=== PATIENT | female | born 1990 | race American Indian/Alaskan Native ===

== ENCOUNTER 2018-09-07 12:31 | Emergency (ER) | payer MEDICAID ==
[2018-09-07 12:38] VITALS: BP 118/78
--- NOTE | 2018-09-07 12:46 | Emergency Department Report ---
Blank Doc - Documentation Documentation: This is a 28-year-old female that presents with vaginal bleeding. Stated had an 5 weeks ago. Stated has clots now. This initial assessment diagnostic orders/clinical plan/treatment(s) is/are subject to change based on patient's health status, clinical progression and re- assessment by fellow clinical providers in the ED. Further treatment and workup at subsequent clinical providers discretion. Patient/guardians urged not to elope from ED s their condition may be serious if not clinically assessed and managed. Initial orders include: 1-Patient sent to [facility] for further evaluation and treatment 2- Labs 3- Ultrasound
[2018-09-07 14:00] LABS: Bilirubin,Urine NEG (Negative); Blood,Urine LG (Negative); Color,Urine Yellow (Yellow); Mucus,Urine 3+ /HPF; RBC,Urine > 182.0 /HPF (0.0-6.0)
[2018-09-07 14:18] LABS: Basophils % (Auto) 0.4 % (0.0-1.8); Eosinophils # (Auto) 0.1 K/mm3 (0.0-0.4); Eosinophils % (Auto) 3.2 % (0.0-4.3); Hematocrit 34.1 % (30.3-42.9); Hemoglobin 11.1 gm/dl (10.1-14.3); Lymphocytes # (Auto) 1.6 K/mm3 (1.2-5.4); Mean Corpuscular HGB Conc 32 % (30-34); Mean Corpuscular Volume 82 fl (79-97); Monocytes # (Auto) 0.3 K/mm3 (0.0-0.8); Monocytes % (Auto) 9.5 % (0.0-7.3); Platelet Count 283 K/mm3 (140-440); Red Blood Count 4.14 M/mm3 (3.65-5.03); Red Cell Distribution Width 17.3 % (13.2-15.2)
--- NOTE | 2018-09-07 14:39 | Emergency Department Report ---
HPI <GREG NOVA - Last Filed: 09/07/18 19:13> - HPI HPI: 28-year-old female presents to the emergency department with complaint of some heavy vaginal bleeding that has occurred on 3 different occasions since patient had an elective . The patient had this elective at about 19 weeks that she says took 2 days, August 04 and . She denies having any issues but then says that there was one episode last week where she was just out in public and suddenly she had a large gush of blood and clots come from the vagina. Since that time there has been 2 other episodes of this happening including 1 this morning. She has some intermittent abdominal or pelvic discomfort. She denies any fever, nausea, vomiting. She otherwise denies any past medical history. She has not taken anything for her symptoms prior to arrival. <MANUELITO ROSENTHAL - Last Filed: 09/08/18 16:08> - General Chief Complaint: Vaginal Bleeding Time Seen by Provider: 09/07/18 12:45 ED Past Medical Hx - Social History Smoking Status: Never Smoker Substance Use Type: None <MANUELITO ROSENTHAL - Last Filed: 09/08/18 16:08> ED Review of Systems ROS: Stated complaint: BLEEDING AFTER Other details as noted in HPI <GREG NOVA - Last Filed: 09/07/18 19:13> ROS: Stated complaint: BLEEDING AFTER Other details as noted in HPI Comment: All other systems reviewed and negative Constitutional: denies: chills, fever Eyes: denies: eye pain, vision change ENT: denies: ear pain, throat pain Respiratory: denies: cough, shortness of breath Cardiovascular: denies: chest pain, palpitations Genitourinary: abnormal menses, other (pelvic pain, abnormal vaginal bleeding) Musculoskeletal: denies: back pain, arthralgia Skin: denies: rash, lesions Neurological: denies: headache, weakness <MANUELITO ROSENTHAL - Last Filed: 09/08/18 16:08> Physical Exam - Physical Exam Vital Signs: Vital Signs 09/07/18 09/07/18 12:37 12:47 Temperature 97.9 F 97.9 F Pulse Rate 98 H 98 H Respiratory 18 18 Rate Blood Pressure 118/78 Blood Pressure 118/78 [Left] O2 Sat by Pulse 100 100 Oximetry <GREG NOVA - Last Filed: 09/07/18 19:13> - Physical Exam Vital Signs: Vital Signs 09/07/18 09/07/18 12:37 12:47 Temperature 97.9 F 97.9 F Pulse Rate 98 H 98 H Respiratory 18 18 Rate Blood Pressure 118/78 Blood Pressure 118/78 [Left] O2 Sat by Pulse 100 100 Oximetry Physical Exam: GENERAL: The patient is well-developed well-nourished. HEENT: Normocephalic. Atraumatic. Patient has moist mucous membranes. EYES: Extraocular motions are intact. NECK: Supple. Trachea is midline. CHEST/LUNGS: Clear to auscultation. There is no respiratory distress noted. HEART/CARDIOVASCULAR: Regular. There is no tachycardia. There is no obvious murmur. ABDOMEN: Abdomen is soft, nontender. Patient has normal bowel sounds. There is no abdominal distention. SKIN: Skin is warm and dry. NEURO: The patient is awake, alert, and oriented. The patient is cooperative. The patient has no focal neurologic deficits. The patient has normal speech. MUSCULOSKELETAL: There is no tenderness or deformity. There is no limitation range of motion. There is no evidence of acute injury. <MANUELITO ROSENTHAL - Last Filed: 09/08/18 16:08> ED Course Vital Signs 09/07/18 09/07/18 12:37 12:47 Temperature 97.9 F 97.9 F Pulse Rate 98 H 98 H Respiratory 18 18 Rate Blood Pressure 118/78 Blood Pressure 118/78 [Left] O2 Sat by Pulse 100 100 Oximetry - Consultations Consultation #1: 09/07/18 19:13 Case was discussed with ER attending, Dr. Barahona, who advised me to contact [facility] for further evaluation and treatment recommendations. Consultation #2: 09/07/18 19:13 Case was discussed with [facility], Dr. Yara Trimble. Discussed with Dr. Trimble, the findings on hemoglobin and Quandt also the ultrasound findings of possible products of conceptions and likely ovarian neoplasm. Advised condition with follow-up as outpatient with an [facility] to continue to follow the hCG. States that the D&C may be needed at some point, but it is not emergent. <AVTAR,GREG - Last Filed: 09/07/18 19:13> Vital Signs 09/07/18 09/07/18 12:37 12:47 Temperature 97.9 F 97.9 F Pulse Rate 98 H 98 H Respiratory 18 18 Rate Blood Pressure 118/78 Blood Pressure 118/78 [Left] O2 Sat by Pulse 100 100 Oximetry <MANUELITO ROSENTHAL - Last Filed: 09/08/18 16:08> ED Medical Decision Making - Lab Data Result diagrams: 09/07/18 14:03 09/07/18 14:03 <GREG NOVA - Last Filed: 09/07/18 19:13> - Lab Data Result diagrams: 09/07/18 14:03 09/07/18 14:03 - Radiology Data Radiology results: report reviewed EXAM: US OB TRANSVAGINAL HISTORY: S/P , pelvic pain, bleeding TECHNIQUE: Grayscale and color doppler ultrasound imaging of the pelvis was performed transabdominally and transvaginally. PRIORS: None. FINDINGS: Uterus: The uterus is homogeneous in echogenicity without focal mass. The uterus measures 9.3 x 4.6 x 7.7 centimeters. The endometrium is heterogeneous in echogenicity measuring 14 millimeters in thickness. There is a focal hypoechoic area within the endometrial canal with internal color flow measuring 2.8 centimeters. Ovaries: There is a complex left ovarian lesion with internal color flow measuring 4.2 centimeters. Another complex lesion without internal color flow is seen within the left ovary measuring 1.1 centimeters. No right ovarian lesions. Normal flow is seen to the ovaries. The right ovary measures 2.1 x 1.4 x 2.6 centimeters. The left ovary measures 5.4 x 2.7 x 4.8 centimeters. Free fluid: None. IMPRESSION: 1. Endometrial findings may represent retained products of conception versus endometrial polyp. 2. Two nonspecific left ovarian lesions, one appears to demonstrate characteristics of a solid neoplasm with the other which may be a solid neoplasm versus hemorrhagic cyst. Consider further evaluation with pelvic MRI and/or close interval follow-up pelvic ultrasound. Transcribed By: Dictated By: BRIEN AU MD Electronically Authenticated By: BRIEN AU MD Signed Date/Time: 09/07/181822 - Medical Decision Making Patient presents to the emergency department with 3 episodes of heavy vaginal bleeding spontaneously going on since the patient had an elective in mid to late July. Labs were mostly unremarkable. She has a stable hemoglobin. Ultrasound finding shows some endometrial findings that could represent retained products of conception and there are 2 nonspecific left ovarian lesions that need to be evaluated for neoplasms. The ultrasound results were followed by my mid level of Greg contacted the [facility] first front ventilator. Dr. Trimble had told him that the patient may need a D&C but this is not an emergent issue and the patient does not require admission. Patient was given outpatient follow-up referrals. - Differential Diagnosis , retained products of conception, malignancy <MANUELITO ROSENTHAL - Last Filed: 09/08/18 16:08> Critical care attestation.: If time is entered above; I have spent that time in minutes in the direct care of this critically ill patient, excluding procedure time. <GREG NOVA - Last Filed: 09/07/18 19:13> Critical Care Time: No Critical care attestation.: If time is entered above; I have spent that time in minutes in the direct care of this critically ill patient, excluding procedure time. <MANUELITO ROSENTHAL - Last Filed: 09/08/18 16:08> ED Disposition Is pt being admited?: No Does the pt Need Aspirin: No <GREG NOVA - Last Filed: 09/07/18 19:13> Is pt being admited?: No <MANUELITO ROSENTHAL - Last Filed: 09/08/18 16:08> Clinical Impression: Vaginal bleeding, Postabortion hemorrhage Disposition: -01 TO HOME OR SELFCARE Condition: Stable Instructions: Dilation and Curettage (ED), Chronic Pelvic Pain in Women (ED) Additional Instructions: Please be sure to follow up with [facility] and they're aware of her case and states need to follow-up to have serial hCGs and at some point in time in the future. A procedure may be needed to to stop the bleeding. However, this can be done in outpatient setting. Referrals: MERLYN WILSON MD [Primary Care Provider] - 3-5 Days KEIRA TRIMBLE MD [Staff Physician] - 3-5 Days
[2018-09-07 14:40] LABS: BUN/Creatinine Ratio 18; Blood Urea Nitrogen 9 mg/dL (7-17); Hemolysis Index 7
[2018-09-07] MEDS ORDERED: MACROBID PO ONE (14:53)
--- NOTE | 2018-09-07 18:22 | Ultrasound Report ---
FINAL REPORT EXAM: US OB < = 14 WEEKS FETUS HISTORY: S/P , pelvic pain, bleeding TECHNIQUE: Grayscale and color doppler ultrasound imaging of the pelvis was performed transabdomina lly and transvaginally. PRIORS: None. FINDINGS: Uterus: The uterus is homogeneous in echogenicity without focal mass. The uterus measures 9.3 x 4.6 x 7.7 centimeters. The endometrium is heterogeneous in echogenicity measuring 14 millimeters in thickn ess. There is a focal hypoechoic area within the endometrial canal with internal color flow measuring 2.8 centimeters. Ovaries: There is a complex left ovarian lesion with internal color flow measuring 4.2 centimeters. A nother complex lesion without internal color flow is seen within the left ovary measuring 1.1 centime ters. No right ovarian lesions. Normal flow is seen to the ovaries. The right ovary measures 2.1 x 1. 4 x 2.6 centimeters. The left ovary measures 5.4 x 2.7 x 4.8 centimeters. Free fluid: None. IMPRESSION: 1. Endometrial findings may represent retained products of conception versus endometrial polyp. 2. Two nonspecific left ovarian lesions, one appears to demonstrate characteristics of a solid neopla sm with the other which may be a solid neoplasm versus hemorrhagic cyst. Consider further evaluation with pelvic MRI and/or close interval follow-up pelvic ultrasound.
--- NOTE | 2018-09-07 18:23 | Ultrasound Report ---
FINAL REPORT EXAM: US OB TRANSVAGINAL HISTORY: S/P , pelvic pain, bleeding TECHNIQUE: Grayscale and color doppler ultrasound imaging of the pelvis was performed transabdominal ly and transvaginally. PRIORS: None. FINDINGS: Uterus: The uterus is homogeneous in echogenicity without focal mass. The uterus measures 9.3 x 4.6 x 7.7 centimeters. The endometrium is heterogeneous in echogenicity measuring 14 millimeters in thickn ess. There is a focal hypoechoic area within the endometrial canal with internal color flow measuring 2.8 centimeters. Ovaries: There is a complex left ovarian lesion with internal color flow measuring 4.2 centimeters. A nother complex lesion without internal color flow is seen within the left ovary measuring 1.1 centime ters. No right ovarian lesions. Normal flow is seen to the ovaries. The right ovary measures 2.1 x 1. 4 x 2.6 centimeters. The left ovary measures 5.4 x 2.7 x 4.8 centimeters. Free fluid: None. IMPRESSION: 1. Endometrial findings may represent retained products of conception versus endometrial polyp. 2. Two nonspecific left ovarian lesions, one appears to demonstrate characteristics of a solid neopla sm with the other which may be a solid neoplasm versus hemorrhagic cyst. Consider further evaluation with pelvic MRI and/or close interval follow-up pelvic ultrasound.
== END 2018-09-07 20:05 | disposition home or self-care (01) ==
LOC: ED 12:31
DX: Z33.2 Encounter for elective termination of pregnancy (principal)
CPT/HCPCS: 36415; 76801; 76817; 80048; 81001; 84702; 85025; 99284